=== PATIENT | male | born 1985 | race Caucasian/White ===

== ENCOUNTER → 2019-10-25 14:49 | Outpatient (CLI) | payer OTHER, SELFPAY ==
[2019-10-25 15:19] LABS: Add Manual Diff / Slide Review NO; Basophils Absolute Auto 0 /uL (0-100); Basophils Percent Auto 0.6 % (0-2); Eosinophils Absolute Auto 100 /uL (0-450); Hemoglobin 13.3 g/dL (13.5-17.5); Lymphocytes Absolute Auto 2000 /uL (1100-4500); Lymphocytes Percent Auto 25.8 % (25-40); Mean Corpuscular Volume 88.2 fL (80-100); Monocytes Absolute Auto 700 /uL (0-900); Monocytes Percent Auto 9.6 % (3-14); Neutrophils Absolute Auto 4900 /uL (1500-7000); Platelet Count 225 X10^3/uL (150-400); Red Blood Cell Count 4.42 X10^6/uL (4.5-5.9); Red Cell Distribution Width 12.3 % (11.6-14.8); White Blood Cell Count 7.8 X10^3/uL (4.5-11.0)
[2019-10-25 15:50] LABS: Alanine Aminotransferase 18 IU/L (<50); Albumin 4.5 g/dL (3.5-5.0); Albumin Globulin Ratio 1.8 (1.0-2.8); Alkaline Phosphatase 43 U/L (38-126); Aspartate Aminotransferase 21 IU/L (17-59); Bilirubin Total 0.9 mg/dL (0.2-1.3); Bilirubin Unconjugated 0.7 mg/dL (0.0-1.1); Globulin 2.5 g/dL (1.7-4.1); HEMOLYSIS < 15 (0-50)
== END ==
PROVIDERS: Referring Provider Podiatrist; Visit Provider Podiatrist
DX: B35.1 Tinea unguium (principal)
CPT/HCPCS: 36415; 80076; 85025

== ENCOUNTER 2020-06-13 18:15 | Emergency (ER) | payer OTHER, SELFPAY ==
[2020-06-13] VITALS (7 sets, daily range): BP systolic 112–134; BP diastolic 60–70; PULSE 55–70; RESP 16; TEMP 36.9; O2SAT 97–100; BMI 23.7
--- NOTE | 2020-06-13 21:29 | DI.CT.S_ITS ---
PROCEDURE: CT HEAD/BRAIN WO CON INDICATIONS: headache for 6 days TECHNIQUE: Noncontrast 4.5 mm thick angled axial sections acquired from the foramen magnum to the vertex, with coronal and sagittal reformats. For radiation dose reduction, the following was used: automated exposure control, adjustment of mA and/or kV according to patient size. COMPARISON: None. FINDINGS: Image quality: Excellent. CSF spaces: Basal cisterns are patent. No extra-axial fluid collections. Ventricles are normal in size and shape. Brain: No midline shift. No intracranial masses or hemorrhage. Guy-white matter interface is normal. There is a cavum septum pellucidum. Skull and face: Calvarium and visualized facial bones are intact, without suspicious lesions. Sinuses: The maxillary sinuses have mucosal retention cysts bilaterally. The frontal and sphenoid sinuses and ethmoid air cells are well aerated. The mastoid air cells are well aerated. IMPRESSION: 1. No acute intracranial abnormality. 2. Mucosal retention cysts in both maxillary sinuses. Dictated by: Marlon Landers M.D. on 06/13/2020 at 22:00 Approved by: Marlon Landers M.D. on 06/13/2020 at 22:03
[2020-06-13] MEDS: DEXAMETHASONE 10 MG/ML VIAL IV (21:52)
[2020-06-13] MEDS: METOCLOPRAMIDE 10 MG/2 ML INJ IV (21:52)
[2020-06-13] MEDS: SODIUM CHLORIDE 0.9% 1,000 ML 1000 ML IV (21:52)
[2020-06-13] MEDS: KETOROLAC 60 MG/2 ML VIAL 15 MG IV (21:52)
[2020-06-13 22:04] LABS: Alanine Aminotransferase 22 IU/L (<50); Albumin 4.5 g/dL (3.5-5.0); Albumin Globulin Ratio 1.9 (1.0-2.8); Alkaline Phosphatase 39 U/L (38-126); Aspartate Aminotransferase 25 IU/L (17-59); BUN Creatinine Ratio 20.2 (6-22); Bilirubin Total 0.4 mg/dL (0.2-1.3); Blood Urea Nitrogen 18 mg/dL (9-20); Calcium 9.3 mg/dL (8.4-10.2); Carbon Dioxide 29 mmol/L (22-32); Chloride 104 mmol/L (98-107); Estimated Glomerular Filt Rate > 60.0 mL/min (>60); Globulin 2.4 g/dL (1.7-4.1); Glucose 95 mg/dL (70-100); HEMOLYSIS 20 (0-50); Potassium 3.7 mmol/L (3.4-5.1); Sodium 142 mmol/L (137-145); Total Protein 6.9 g/dL (6.3-8.2)
--- NOTE | 2020-06-13 22:45 | ED.HA ---
HPI - Headache General Chief Complaint: Headache Stated Complaint: throbbing in left side of head past 6 days Time Seen by Provider: 06/13/20 21:19 Mode of arrival: Ambulatory Limitations: no limitations History of Present Illness HPI Narrative: 35-year-old gentleman with a history of chronic recurrent migraine currently on no treatment planned and taking no medications presents with 6 days of waxing and waiting headache. He does report that there are a few hours where he is headache free but the headache is more persistent and worse than it has been in the past. He describes episodes of his hands being numb significant nausea he describes it is similar to his previous migraines however most of his migraines resolved within 8 hours. He describes a bit of lightheadedness but no fevers, cough, chills, neck pain, abdominal pain and no recent trauma. Related Data Previous Rx's Medication Instructions Recorded sumatriptan succinate [Imitrex] 50 mg PO Q2-4H PRN #9 tab 06/13/20 Allergies Allergy/AdvReac Type Severity Reaction Status Date / Time No Known Drug Allergies Allergy Verified 06/13/20 18:54 Review of Systems Review of Systems Narrative: Remainder of complete review of systems is otherwise unremarkable except for that included in the HPI. Patient History Medical History Migraine Social History Smoking Status: Never smoker Smoking Status: Never smoker alcohol intake frequency: 0-2 drinks per day Substance Use Type: does not use Exam Narrative Exam Narrative: General: Healthy appearing, in mild distress. Able to give a complete and coherent history. Well-nourished well-developed HEENT: Moist mucous membranes, normal sclera with reactive pupils, Neck: No JVD, supple Respiratory: Lungs are clear to auscultation, no wheezing no rales no rhonchi. Full and symmetrical air movement Cardiac: Regular rate and rhythm no murmurs no bruits Abdomen: Soft, nontender, good bowel tones, no flank pain Skin: Warm and dry, no rashes Neurologic: Grossly neurologically intact with no obvious asymmetries or abnormalities Extremities: No trauma, well perfused Psych: Cooperative, appropriate insight and affect Initial Vital Signs Initial Vital Signs: Vital Signs Temperature 98.4 F 06/13/20 18:51 Pulse Rate 69 06/13/20 18:51 Respiratory Rate 16 06/13/20 18:51 Blood Pressure 134/66 06/13/20 18:51 Pulse Oximetry 97 06/13/20 18:51 Course Orders Ordered: ED Orders 06/13/20 21:29 CT head/brain wo con Stat 06/13/20 21:45 Comprehensive Metabolic Panel Stat Discontinued Medications Dexamethasone (Dexamethasone 10 Mg/Ml Vial) 10 mg IV NOW ONE Stop: 06/13/20 21:29 Last Admin: 06/13/20 21:52 Dose: 10 mg Documented by: PHONG Sodium Chloride (Normal Saline 0.9%) 1,000 mls @ 1,000 mls/hr IV BOLUS ONE Stop: 06/13/20 22:27 Last Infusion: 06/13/20 22:56 Dose: 0 mls/hr Documented by: Admin: 06/13/20 21:52 Dose: 1,000 mls/hr Documented by: PHONG Ketorolac Tromethamine (Ketorolac 60 Mg/2 Ml Vial) 15 mg IV NOW ONE Stop: 06/13/20 21:29 Last Admin: 06/13/20 21:52 Dose: 15 mg Documented by: PHONG Metoclopramide HCl (Metoclopramide 10 Mg/2 Ml Inj) 10 mg IV NOW ONE Stop: 06/13/20 21:29 Last Admin: 06/13/20 21:52 Dose: 10 mg Documented by: PHONG Vital Signs Vital signs: Vital Signs - 8 hr 06/13/20 20:34 06/13/20 21:00 06/13/20 21:30 Pulse Rate 58 L 59 L 70 Blood Pressure 115/62 112/61 124/68 Pulse Oximetry 100 99 99 06/13/20 21:45 06/13/20 22:00 06/13/20 22:30 Pulse Rate 66 66 55 L Blood Pressure 117/70 125/70 120/60 Pulse Oximetry 100 99 97 MDM - Headache Medical Records Attestation: I reviewed the patient's medical records. Lab Data Attestation: I reviewed the patient's lab results. Result diagrams: 06/13/20 21:45 06/13/20 21:45 Labs: Lab Results 06/13/20 Range/Units 21:45 Sodium 142 (137-145) mmol/L Potassium 3.7 (3.4-5.1) mmol/L Chloride 104 (98-107) mmol/L Carbon Dioxide 29 (22-32) mmol/L BUN 18 (9-20) mg/dL Creatinine 0.89 (0.66-1.25) mg/dL Estimated GFR > 60.0 (>60) mL/min BUN/Creatinine Ratio 20.2 (6-22) Glucose 95 (70-100) mg/dL Calcium 9.3 (8.4-10.2) mg/dL Total Bilirubin 0.4 (0.2-1.3) mg/dL AST 25 (17-59) IU/L ALT 22 (<50) IU/L Alkaline Phosphatase 39 (38-126) U/L Total Protein 6.9 (6.3-8.2) g/dL Albumin 4.5 (3.5-5.0) g/dL Globulin 2.4 (1.7-4.1) g/dL Albumin/Globulin Ratio 1.9 (1.0-2.8) Imaging Data CT scan - head: Radiologist's Impression: FINDINGS: Image quality: Excellent. CSF spaces: Basal cisterns are patent. No extra-axial fluid collections. Ventricles are normal in size and shape. Brain: No midline shift. No intracranial masses or hemorrhage. Guy-white matter interface is normal. There is a cavum septum pellucidum. Skull and face: Calvarium and visualized facial bones are intact, without suspicious lesions. Sinuses: The maxillary sinuses have mucosal retention cysts bilaterally. The frontal and sphenoid sinuses and ethmoid air cells are well aerated. The mastoid air cells are well aerated. IMPRESSION: 1. No acute intracranial abnormality. 2. Mucosal retention cysts in both maxillary sinuses. Dictated by: Marlon Landers M.D. on 06/13/2020 at 22:00 [facility] Narrative Medical decision making narrative: 35-year-old man with the 6 day history of waxing and waning migraine with aura. Ten year history of similar her migraine symptoms. He has never had additional workup for this and never had any neuro imaging. CT scan is unremarkable today labs are reassuring. He responded nicely to fluids, Toradol, Reglan. Talked about outpatient management including Imitrex. Prescription is given along with anticipated side effects of medication. If effective, recommended he follow-up with his primary care physician. He is safe for home discharge Discharge Plan Departure Patient Disposition: Home Clinical Impression: Migraine Qualifiers: Migraine type: with aura Status migrainosus presence: with status migrainosus Intractability: not intractable Qualified Code(s): G43.101 - Migraine with aura, not intractable, with status migrainosus Instructions: DI for Migraine Activity Restrictions/Additional Instructions: Thank you for coming in today With this intermittent headache that has not resolved for 6 days, I suspect it is all a single continuous migraine. Because you have never had any imaging for your head or headaches we did do a CT scan today that was reassuring. Your given a L of fluid, Toradol, metoclopramide and Decadron. The Decadron as a steroid to help prevent the headache from coming back now that is gone. In the future, using 50 mg of Imitrex, a migraine specific medication, as soon as you get the Aura may help prevent the headaches altogether. If this works, please talk to your primary care physician for a regular prescription. This prescription has been electronically sent to [facility] in [place]. If you have recurrent symptoms or other issues, please feel free to return to the emergency department Prescriptions: New sumatriptan succinate [Imitrex] 50 mg tablet 50 mg PO Q2-4H PRN (Reason: migraine headache) Qty: 9 RF: 0
== END 2020-06-13 23:08 | disposition home or self-care (01) ==
PROVIDERS: Emergency Provider Emergency Medicine
DX: G43.101 Migraine with aura, not intractable, with status migrainosus (principal)
CPT/HCPCS: 36415; 70450; 80053; 96360; 96361; 96374; 96375; 99284; J1100; J1885; J2765

== ENCOUNTER → 2020-10-29 11:32 | Outpatient (CLI) | payer OTHER, SELFPAY ==
[2020-10-29 12:03] LABS: COVID19 -Nasal RAPID Negative (Negative)
== END ==
PROVIDERS: Visit Provider Physician Assistant
DX: J02.9 Acute pharyngitis, unspecified (principal); R09.81 Nasal congestion; Z20.822 Contact with and (suspected) exposure to COVID-19
CPT/HCPCS: 87635

== ENCOUNTER → 2020-12-04 13:07 | Outpatient (CLI) | payer OTHER, SELFPAY ==
[2020-12-04 13:41] LABS: COVID19 -Nasal RAPID Negative (Negative)
== END ==
PROVIDERS: Referring Provider Nurse Practitioner Family; Visit Provider Nurse Practitioner Family
DX: Z20.822 Contact with and (suspected) exposure to COVID-19 (principal); R09.81 Nasal congestion
CPT/HCPCS: 87635

== ENCOUNTER → 2022-03-07 16:05 | Outpatient (CLI) | payer OTHER, SELFPAY ==
--- NOTE | 2022-03-07 16:06 | DI.RAD.S_ITS ---
PROCEDURE: XR TOE RT MIN 2V INDICATIONS: Toe pain TECHNIQUE: 3 views of the 2nd toe(s) acquired. COMPARISON: None. FINDINGS: Bones: No fractures or dislocations. No suspicious bony lesions. Soft tissues: No suspicious soft tissue densities. IMPRESSION: Unremarkable 2nd toe radiographs Approved by: Edwardo Lind M.D. on 03/07/2022 at 16:34
== END ==
PROVIDERS: Referring Provider Nurse Practitioner Family; Visit Provider Nurse Practitioner Family
DX: S99.921A Unspecified injury of right foot, initial encounter (principal); X58.XXXA Exposure to other specified factors, initial encounter
CPT/HCPCS: 73660

== ENCOUNTER 2022-10-13 21:47 | Emergency (ER) | payer OTHER, SELFPAY ==
[2022-10-13 21:58] VITALS: BP 123/65; PULSE 68; RESP 16; TEMP 36.7; O2SAT 100; BMI 23.1
--- NOTE | 2022-10-13 22:27 | DI.RAD.S_ITS ---
PROCEDURE: XR CHEST 1V INDICATIONS: chest pain TECHNIQUE: One view of the chest was acquired. COMPARISON: None. FINDINGS: Surgical changes and devices: None. Lungs and pleura: Lungs are clear. No pleural effusions or pneumothorax. Mediastinum: Mediastinal contours appear normal. Heart size is normal. Bones and chest wall: No suspicious bony lesions. Overlying soft tissues appear unremarkable. IMPRESSION: 1. No acute cardiopulmonary disease. Dictated by: Julio Marsh M.D. on 10/13/2022 at 23:22 Approved by: Julio Marsh M.D. on 10/13/2022 at 23:22
[2022-10-13 22:30] VITALS: PULSE 57; RESP 16; O2SAT 98
[2022-10-13 22:30] LABS: Add Manual Diff / Slide Review NO; Basophils Absolute Auto 100 /uL (0-100); Eosinophils Absolute Auto 200 /uL (0-450); Eosinophils Percent Auto 2.1 % (2-4); Hemoglobin 13.1 g/dL (13.5-17.5); Lymphocytes Absolute Auto 2900 /uL (1100-4500); Lymphocytes Percent Auto 38.5 % (25-40); Mean Corpuscular HGB Conc 33.7 % (30-36); Mean Corpuscular Hemoglobin 29.6 PG (26-34); Mean Corpuscular Volume 87.8 fL (80-100); Monocytes Absolute Auto 900 /uL (0-900); Monocytes Percent Auto 12.1 % (3-14); Neutrophils Absolute Auto 3400 /uL (1500-7000); Neutrophils Percent Auto 46.3 % (50-75); Platelet Count 217 X10^3/uL (150-400); Red Blood Cell Count 4.44 X10^6/uL (4.5-5.9); Red Cell Distribution Width 12.7 % (11.6-14.8); White Blood Cell Count 7.4 X10^3/uL (4.5-11.0)
[2022-10-13 22:46] LABS: BUN Creatinine Ratio 20.6 (6-22); Blood Urea Nitrogen 20 mg/dL (9-20); Calcium 9.4 mg/dL (8.4-10.2); Carbon Dioxide 29 mmol/L (22-32); Chloride 103 mmol/L (98-107); Estimated Glomerular Filt Rate > 60 mL/min (>60); Glucose 95 mg/dL (70-100); HEMOLYSIS < 15 (0-50); Sodium 138 mmol/L (137-145)
[2022-10-13 22:58] LABS: Troponin I < 0.012 ng/mL (0.01-0.034)
[2022-10-13 23:00] VITALS: BP 116/69; PULSE 57; RESP 17; O2SAT 97
--- NOTE | 2022-10-13 23:20 | ED.GENADULT ---
HPI - General Adult General Chief complaint: Dizziness Stated complaint: dizziness, lt arm pain and tingling Time Seen by Provider: 10/13/22 22:26 Source: patient Mode of arrival: Ambulatory History of Present Illness HPI narrative: Patient is a 37-year-old male. Has a history of migraines. States he is had 4-5 days of dizziness. He was seen at urgent care yesterday and was told that if his symptoms worsening needed to come to the emergency department. Earlier this afternoon he started to have some left arm tingling. Denies headaches. No shortness of breath. If fevers. Related Data Previous Rx's Medication Instructions Recorded sumatriptan succinate 50 mg tablet 50 mg PO Q2-4H PRN migraine 06/13/20 (Imitrex) headache #9 tabs Allergies Allergy/AdvReac Type Severity Reaction Status Date / Time No Known Drug Allergies Allergy Verified 10/12/22 17:26 Review of Systems Constitutional Constitutional: Reports system reviewed and no additional complaints, except as documented Cardiovascular Cardiovascular: Reports system reviewed and no additional complaints, except as documented Respiratory Respiratory: Reports system reviewed and no additional complaints, except as documented Gastrointestinal Gastrointestinal: Reports system reviewed and no additional complaints, except as documented Integumentary/Breasts Skin/Breast: Reports system reviewed and no additional complaints, except as documented Neurologic Neurologic: Reports system reviewed and no additional complaints, except as documented Patient History Medical History Migraine Social History Smoking Status: Never smoker Smoking Status: Never smoker alcohol intake frequency: 0-2 drinks per day Substance Use Type: does not use Exam Initial Vital Signs Initial Vital Signs: Vital Signs Temperature 98.1 F 10/13/22 21:58 Pulse Rate 68 10/13/22 21:58 Respiratory Rate 16 10/13/22 21:58 Blood Pressure 123/65 10/13/22 21:58 Pulse Oximetry 100 10/13/22 21:58 Oxygen Delivery Method Room Air 10/13/22 21:58 Const General: cooperative, comfortable and No ill appearing HENMT Head: normal to inspection and normocephalic Resp Effort & Inspection: normal respiratory effort Auscultation: clear to auscultation bilaterally Cardio Rate: regular rate Rhythm: regular rhythm GI Inspection: normal to inspection Skin General: no rashes or lesions noted Neuro General: patient alert, patient awake and moves all extremities Scores HEART Score Heart Score history: Slightly Suspicious Heart Score EKG: Normal Heart Score Age: < 45 years old Heart Score risk factors: No known risk factors Heart Score troponin: < or = to normal limit Heart Score Total: 0 Course Orders Ordered: ED Orders 10/13/22 22:06 EKG-12 Lead Stat 10/13/22 22:15 Basic Metabolic Panel Stat Complete Blood Count AUTO DIFF Stat Troponin I Stat 10/13/22 22:27 XR chest 1V Stat Vital Signs Vital signs: Vital Signs - 8 hr 10/13/22 21:58 10/13/22 22:30 10/13/22 23:00 Temperature 98.1 F Pulse Rate 68 57 L Respiratory Rate 16 16 Blood Pressure 123/65 116/69 Pulse Oximetry 100 98 Oxygen Delivery Method Room Air 10/13/22 23:00 Temperature Pulse Rate 57 L Respiratory Rate 17 Blood Pressure Pulse Oximetry 97 Oxygen Delivery Method Medical Decision Making Lab Data Lab results reviewed: Yes I reviewed the patient's lab results. 10/13/22 22:15 10/13/22 22:15 Labs: Lab Results 10/13/22 10/13/22 Range/Units 22:15 22:15 WBC 7.4 (4.5-11.0) X10^3/uL RBC 4.44 L (4.5-5.9) X10^6/uL Hgb 13.1 L (13.5-17.5) g/dL Hct 39.0 L (41-53) % MCV 87.8 (80-100) fL MCH 29.6 (26-34) PG MCHC 33.7 (30-36) % RDW 12.7 (11.6-14.8) % Plt Count 217 (150-400) X10^3/uL Neut % (Auto) 46.3 L (50-75) % Lymph % (Auto) 38.5 (25-40) % [place] % (Auto) 12.1 (3-14) % Eos % (Auto) 2.1 (2-4) % Baso % (Auto) 1.0 (0-2) % Neut # (Auto) 3400 (6840-0648) /uL Lymph # (Auto) 2900 (5979-6392) /uL [place] # (Auto) 900 (0-900) /uL Eos # (Auto) 200 (0-450) /uL Baso # (Auto) 100 (0-100) /uL Sodium 138 (137-145) mmol/L Potassium 4.0 (3.4-5.1) mmol/L Chloride 103 (98-107) mmol/L Carbon Dioxide 29 (22-32) mmol/L BUN 20 (9-20) mg/dL Creatinine 0.97 (0.66-1.25) mg/dL Estimated GFR > 60 (>60) mL/min BUN/Creatinine Ratio 20.6 (6-22) Glucose 95 (70-100) mg/dL Calcium 9.4 (8.4-10.2) mg/dL Troponin I < 0.012 (0.01-0.034) ng/mL Imaging Data Chest x-ray: Radiologist's Impression: PROCEDURE:? XR CHEST 1V ? INDICATIONS:? chest pain ? TECHNIQUE:? One view of the chest was acquired.? ? COMPARISON:? None. ? FINDINGS:? ? Surgical changes and devices:? None.? ? Lungs and pleura:? Lungs are clear.? No pleural effusions or pneumothorax.? ? Mediastinum:? Mediastinal contours appear normal.? Heart size is normal.? ? Bones and chest wall:? No suspicious bony lesions.? Overlying soft tissues appear unremarkable.? ? IMPRESSION:? ? 1.? No acute cardiopulmonary disease. ECG Data Attestation: I personally reviewed and interpreted this ECG as follows: Interpretation: Sinus bradycardia Ventricular rate of 58 Normal QRS Normal QTC No ST T wave changes MDM Narrative Medical decision making narrative: Low risk heart score. Labs unremarkable. EKG is unremarkable. Chest x-ray is unremarkable. Low suspicion for ACS, TIA/CVA. Unsure the exact etiology however patient is safe for discharge home and follow-up with primary provider. He was given return precautions. He expressed understanding and agreement. Discharge Plan Departure Patient Disposition: Home Clinical Impression: Atypical chest pain Instructions: DI for Atypical Chest Pain Activity Restrictions/Additional Instructions: Recommend that you continue to take all of your medications as directed and keep your scheduled appointment with your new primary doctor. Return to the emergency department for new or worsening symptoms. Prescriptions: No Action sumatriptan succinate [Imitrex] 50 mg tablet 50 mg PO Q2-4H PRN (Reason: migraine headache) Qty: 9 0RF Rx Instructions: do not exceed 4 doses per 24 hrs Referrals: Leno Schwab DO [Primary Care Provider] - Stand Alone Forms: Patient Portal/API
== END 2022-10-13 23:37 | disposition home or self-care (01) ==
PROVIDERS: Emergency Provider Emergency Medicine; PCP Family Medicine
DX: R07.89 Other chest pain (principal)
CPT/HCPCS: 36415; 71045; 80048; 84484; 85025; 93005; 99283; 99284

== ENCOUNTER 2022-10-15 17:50 | Emergency (ER) | payer OTHER, SELFPAY ==
[2022-10-15 17:59] VITALS: BP 130/70; PULSE 58; RESP 14; TEMP 37; O2SAT 98; BMI 23.1
--- NOTE | 2022-10-15 19:56 | DI.CT.S_ITS ---
PROCEDURE: CT HEAD/BRAIN WO CON INDICATIONS: R sided facial tingling TECHNIQUE: Noncontrast 4.5 mm thick angled axial sections acquired from the foramen magnum to the vertex, with coronal and sagittal reformats. For radiation dose reduction, the following was used: automated exposure control, adjustment of mA and/or kV according to patient size. COMPARISON: [facility], CT, CT HEAD/BRAIN WO CON, 06/13/2020, 21:32. FINDINGS: Image quality: Excellent. CSF spaces: Basal cisterns are patent. No extra-axial fluid collections. Ventricles are normal in size and shape. The is a cavum septum pellucidum. Brain: No intracranial hemorrhage, mass, or mass effect. Guy-white matter interface appears preserved. Skull and face: Calvarium and visualized facial bones demonstrate no acute fractures. There is mild left nasal bone irregularity which appears unchanged. Sinuses: Visualized sinuses demonstrate partial opacification of the right maxillary sinus with an air-fluid level. Mastoid air cells are clear. IMPRESSION: 1. No acute intracranial abnormality. 2. Right maxillary sinus opacification with an air-fluid level suggestive of acute sinusitis. Dictated by: Julio Marsh M.D. on 10/15/2022 at 20:41 Approved by: Julio Marsh M.D. on 10/15/2022 at 20:44
--- NOTE | 2022-10-15 19:56 | ED.HA ---
HPI - Headache General Chief Complaint: Headache Stated Complaint: numbness rt side of face, lightheaded Time Seen by Provider: 10/15/22 19:19 Source: patient Mode of arrival: Ambulatory Limitations: no limitations History of Present Illness HPI Narrative: Patient is a 37-year-old male. He does have a history of migraine headaches. Does have a prescription for Imitrex. He is not taken this medication. He was seen here in the emergency department a couple days ago. He was seen by myself. At that time he was seen for evaluation of lightheadedness and left arm symptoms. He would a negative workup. Discharged home. Since that time he states that the issues that he was having in his left arm is since resolved although he is still having slight headache and lightheadedness. This is not a vertigo sensation. He also states he is fullness in his right ear. Also has discomfort to the right side of his face and tingling to the right side of his face. No sore throat. No fevers. Skin rashes. No chest pain. No shortness of breath. Related Data Previous Rx's Medication Instructions Recorded sumatriptan succinate 50 mg tablet 50 mg PO Q2-4H PRN migraine 06/13/20 (Imitrex) headache #9 tabs amoxicillin 875 mg-potassium 1 tab PO BID 7 days #14 tabs 10/15/22 clavulanate 125 mg tablet Allergies Allergy/AdvReac Type Severity Reaction Status Date / Time bee venom protein (honey bee) Allergy Unknown Verified 10/15/22 18:03 Review of Systems Review of Systems ROS Unobtainable: All systems reviewed & are unremarkable except as noted in HPI and below Patient History Medical History Migraine Social History Smoking Status: Never smoker Smoking Status: Never smoker alcohol intake frequency: 0-2 drinks per day Substance Use Type: does not use Exam Initial Vital Signs Initial Vital Signs: Vital Signs Temperature 98.6 F 10/15/22 17:59 Pulse Rate 58 L 10/15/22 17:59 Respiratory Rate 14 10/15/22 17:59 Blood Pressure 130/70 10/15/22 17:59 Pulse Oximetry 98 10/15/22 17:59 Oxygen Delivery Method Room Air 10/15/22 17:59 Const General: cooperative, comfortable and No ill appearing [facility] Head: normal to inspection and normocephalic Ears: hearing grossly normal bilaterally and other (Right ear TM bulging over no erythema, cerumen obscuring L tm) Face and sinus: normal facial exam Mouth: oral mucosae normal Resp Effort & Inspection: normal respiratory effort Auscultation: clear to auscultation bilaterally Cardio Rate: regular rate Rhythm: regular rhythm Skin General: no rashes or lesions noted Neuro General: patient alert, patient awake, patient oriented x3 and moves all extremities Cranial Nerves: CN's II-XI intact bilaterally Cognition: normal cognition Speech: speech normal Sensory Exam: no sensory deficits noted Extrem General: normal to inspection and capillary refill normal Course Orders Ordered: ED Orders 10/15/22 19:56 CT head/brain wo con Stat Discontinued Medications Amoxicillin/Clavulanate Potassium (Amoxicillin/Clav 875/125 Mg) 1 tab PO NOW ONE Stop: 10/15/22 21:47 Last Admin: 10/15/22 22:10 Dose: 1 tab Documented By: ROBERT Sumatriptan Succinate (Sumatriptan 25 Mg Tablet) 50 mg PO NOW ONE Stop: 10/15/22 19:57 Last Admin: 10/15/22 20:15 Dose: 50 mg Documented By: JOYCE Vital Signs Vital signs: Vital Signs - 8 hr 10/15/22 22:11 10/15/22 22:12 10/15/22 22:12 Pulse Rate 64 60 Blood Pressure 115/63 Pulse Oximetry 97 97 MDM - Headache Imaging Data CT scan - head: Radiologist's Impression: PROCEDURE:? CT HEAD/BRAIN WO CON ? INDICATIONS:? R sided facial tingling ? TECHNIQUE:? Noncontrast 4.5 mm thick angled axial sections acquired from the foramen magnum to the vertex, with coronal and sagittal reformats.? For radiation dose reduction, the following was used:? automated exposure control, adjustment of mA and/or kV according to patient size.? ? COMPARISON:? [facility], CT, CT HEAD/BRAIN WO CON, 06/13/2020, 21:32. ? FINDINGS:? Image quality:? Excellent.? ? CSF spaces:? Basal cisterns are patent.? No extra-axial fluid collections.? Ventricles are normal in size and shape.? The is a cavum septum pellucidum. ? Brain:? No intracranial hemorrhage, mass, or mass effect.? Guy-white matter interface appears preserved.? ? Skull and face:? Calvarium and visualized facial bones demonstrate no acute fractures.? There is mild left nasal bone irregularity which appears unchanged. ? Sinuses:? Visualized sinuses demonstrate partial opacification of the right maxillary sinus with an air-fluid level.? Mastoid air cells are clear. ? IMPRESSION:? ? 1. No acute intracranial abnormality. ? 2. Right maxillary sinus opacification with an air-fluid level suggestive of acute sinusitis.? MDM Narrative Medical decision making narrative: Patient has a nonfocal neurologic exam. Head CT is consistent with an acute sinusitis and that does fit his presentation today. He does have a bulging right tympanic membrane. I have low suspicion for CVA/TIA. Will treat like sinusitis. He was given return precautions and follow-up instructions. He expressed understanding and agreement. Discharge Plan Departure Patient Disposition: Home Clinical Impression: Sinusitis Instructions: DI for Sinusitis Activity Restrictions/Additional Instructions: I do recommend that you start taking the antibiotics as directed. I also recommend that you start taking an antihistamine such as Claritin/Giselle/Zyrtec or the generic version these medication on a daily basis. Contact your primary provider for follow-up. Return to the emergency department for new symptoms. Prescriptions: New amoxicillin-pot clavulanate 875-125 mg tablet 1 tab PO BID 7 Days Qty: 14 0RF No Action sumatriptan succinate [Imitrex] 50 mg tablet 50 mg PO Q2-4H PRN (Reason: migraine headache) Qty: 9 0RF Rx Instructions: do not exceed 4 doses per 24 hrs Referrals: Leno Schwab DO [Primary Care Provider] - Stand Alone Forms: Patient Portal/API
[2022-10-15] MEDS: SUMAtriptan 25 MG TABLET 50 MG PO (20:15)
[2022-10-15] MEDS: AMOXICILLIN/CLAV 875/125 MG 1 TAB PO (22:10)
[2022-10-15 22:11] VITALS: PULSE 64; O2SAT 97
[2022-10-15 22:12] VITALS: BP 115/63; PULSE 60; O2SAT 97
== END 2022-10-15 22:19 | disposition home or self-care (01) ==
PROVIDERS: Emergency Provider Emergency Medicine; PCP Family Medicine
DX: J32.9 Chronic sinusitis, unspecified (principal); R51.9 Headache, unspecified; R20.2 Paresthesia of skin
CPT/HCPCS: 70450; 99283; 99284

== ENCOUNTER 2022-10-19 09:48 | Emergency (ER) | payer OTHER, SELFPAY ==
[2022-10-19 10:07] VITALS: BP 137/74; PULSE 66; RESP 16; TEMP 36.8; O2SAT 100; BMI 23.1
[2022-10-19 10:15] VITALS: PULSE 60; RESP 23; O2SAT 99
[2022-10-19 10:16] VITALS: BP 136/74; PULSE 58; RESP 20; O2SAT 100
[2022-10-19 10:30] VITALS: BP 126/64; PULSE 60; RESP 17; O2SAT 100
[2022-10-19 10:35] LABS: Add Manual Diff / Slide Review NO; Basophils Absolute Auto 0 /uL (0-100); Basophils Percent Auto 0.6 % (0-2); Eosinophils Absolute Auto 100 /uL (0-450); Eosinophils Percent Auto 0.9 % (2-4); Hemoglobin 13.8 g/dL (13.5-17.5); Lymphocytes Absolute Auto 1800 /uL (1100-4500); Lymphocytes Percent Auto 26.7 % (25-40); Mean Corpuscular HGB Conc 33.7 % (30-36); Mean Corpuscular Hemoglobin 29.6 PG (26-34); Mean Corpuscular Volume 87.8 fL (80-100); Monocytes Absolute Auto 700 /uL (0-900); Monocytes Percent Auto 9.8 % (3-14); Neutrophils Absolute Auto 4300 /uL (1500-7000); Platelet Count 214 X10^3/uL (150-400); Red Blood Cell Count 4.67 X10^6/uL (4.5-5.9); Red Cell Distribution Width 12.3 % (11.6-14.8); White Blood Cell Count 6.9 X10^3/uL (4.5-11.0)
[2022-10-19 10:56] LABS: Alanine Aminotransferase 25 IU/L (<50); Albumin 4.7 g/dL (3.5-5.0); Albumin Globulin Ratio 1.6 (1.0-2.8); Alkaline Phosphatase 48 U/L (38-126); Aspartate Aminotransferase 24 IU/L (17-59); BUN Creatinine Ratio 14.8 (6-22); Bilirubin Total 0.7 mg/dL (0.2-1.3); Blood Urea Nitrogen 13 mg/dL (9-20); Calcium 9.3 mg/dL (8.4-10.2); Carbon Dioxide 28 mmol/L (22-32); Chloride 102 mmol/L (98-107); Estimated Glomerular Filt Rate > 60 mL/min (>60); Globulin 2.9 g/dL (1.7-4.1); Glucose 102 mg/dL (70-100); HEMOLYSIS < 15 (0-50); Lipase 54 U/L (23-300); Potassium 3.8 mmol/L (3.4-5.1); Sodium 139 mmol/L (137-145); Total Protein 7.6 g/dL (6.3-8.2)
[2022-10-19 11:00] VITALS: BP 115/65; PULSE 59; RESP 15; O2SAT 100
[2022-10-19 11:30] VITALS: BP 124/71; PULSE 67; RESP 14; O2SAT 100
--- NOTE | 2022-10-19 11:37 | ED.ABDPAIN ---
HPI - Abdominal Pain <Gallo Blankenship PA-C - Last Filed: 10/19/22 11:44> General Chief Complaint: Abdominal Pain Stated Complaint: Stomach pain/ on anitbiotics T-4 Time Seen by Provider: 10/19/22 11:07 Source: patient Mode of arrival: Ambulatory History of Present Illness HPI narrative: 37-year-old male with past medical history migraine presents to the ED with 1 day of epigastric pain. Patient states that he was seen in the ED for sinusitis, has been on Augmentin for the last 3 days. Patient states that he took his dose of Augmentin this morning, and later ate some cereal, following which he had intense epigastric pain which he describes as resembling hunger pains. Patient states that when he came into the ED, he noticed some gurgling noises from his stomach, following which his abdominal pain completely resolved. Patient had a bowel movement this morning which he describes as normal, denies hematochezia or melena. Patient denies fever, chills, nausea, vomiting, chest pain, shortness of breath. No history of nephrolithiasis. Related Data Previous Rx's Medication Instructions Recorded sumatriptan succinate 50 mg tablet 50 mg PO Q2-4H PRN migraine 06/13/20 (Imitrex) headache #9 tabs amoxicillin 875 mg-potassium 1 tab PO BID 7 days #14 tabs 10/15/22 clavulanate 125 mg tablet Allergies Allergy/AdvReac Type Severity Reaction Status Date / Time bee venom protein (honey bee) Allergy Unknown Verified 10/15/22 18:03 Review of Systems <Gallo Blankenship PA-C - Last Filed: 10/19/22 11:44> Review of Systems ROS Unobtainable: All systems reviewed & are unremarkable except as noted in HPI and below Constitutional Constitutional: Denies chills, Denies fatigue, Denies fever(s), Denies frequent falls, Denies lethargy and Denies weakness Eyes Eyes: Denies change in vision, Denies eye discharge, Denies irritation and Denies loss of vision ENT Ears, Nose, Mouth, and Throat: Denies change in voice, Denies dizziness, Denies neck pain, Denies sore throat and Denies throat swelling Cardiovascular Cardiovascular: Denies chest pain, Denies irregular heart rhythm, Denies lightheadedness, Denies palpitations, Denies dyspnea, Denies dyspnea on exertion and Denies orthopnea Respiratory Respiratory: Denies cough, Denies dyspnea, Denies dyspnea on exertion and Denies wheezing Gastrointestinal Gastrointestinal: Reports abdominal pain, Denies change in bowel habits, Denies diarrhea, Denies nausea and Denies vomiting Genitourinary Genitourinary: Denies hematuria, Denies flank pain, Denies urinary incontinence and Denies urinary urgency Musculoskeletal Musculoskeletal: Denies back pain, Denies muscle weakness, Denies neck pain, Denies numbness and Denies tingling Integumentary/Breasts Skin/Breast: Denies pruritus, Denies erythema, Denies rash and Denies wounds Neurologic Neurologic: Denies behavioral changes, Denies confusion, Denies dizziness, Denies frequent falls, Denies loss of vision, Denies numbness, Denies tingling and Denies weakness Psychiatric Psychiatric: Denies anxiety, Denies behavioral changes, Denies confusion, Denies depression, Denies homicidal ideation and Denies suicidal ideation Endocrine Endocrine: Denies fatigue, Denies flushing and Denies palpitations Hematologic/Lymphatic Hematologic/Lymphatic: Denies easy bruising Allergic/Immunologic Allergic/Immunologic: Denies urticaria, Denies throat swelling and Denies wheezing Patient History <Gallo Blankenship PA-C - Last Filed: 10/19/22 11:44> Medical History Migraine Social History Smoking Status: Never smoker Smoking Status: Never smoker alcohol intake frequency: 0-2 drinks per day Substance Use Type: does not use Exam <Gallo Blankenship PA-C - Last Filed: 10/19/22 11:44> Narrative Exam Narrative: Const General:?cooperative, healthy appearing and comfortable [facility] Head:?normal to inspection Ears:?hearing grossly normal bilaterally Nose:?external nose normal Face and sinus:?normal facial exam and sinuses nontender Mouth:?oral mucosae normal Throat:?posterior oropharynx normal Eyes General:?appearance normal, both eyes and all related structures Neck Neck:?normal visual inspection and no lymphadenopathy noted Resp Effort & Inspection:?normal respiratory effort Auscultation:?clear to auscultation bilaterally Cardio Rate:?regular rate Rhythm:?regular rhythm GI Abdomen is soft, nondistended, nontender to palpation. There is no CVA tenderness. Neuro General:?patient alert, patient awake and patient oriented x3 Initial Vital Signs Initial Vital Signs: Vital Signs Temperature 98.2 F 10/19/22 10:07 Pulse Rate 66 10/19/22 10:07 Respiratory Rate 16 10/19/22 10:07 Blood Pressure 137/74 10/19/22 10:07 Pulse Oximetry 100 10/19/22 10:07 Oxygen Delivery Method Room Air 10/19/22 10:07 <Sharyn Richardson DO - Last Filed: 10/20/22 08:14> Initial Vital Signs Initial Vital Signs: Vital Signs Temperature 98.2 F 10/19/22 10:07 Pulse Rate 66 10/19/22 10:07 Respiratory Rate 16 10/19/22 10:07 Blood Pressure 137/74 10/19/22 10:07 Pulse Oximetry 100 10/19/22 10:07 Oxygen Delivery Method Room Air 10/19/22 10:07 Course <Gallo Blankenship PA-C - Last Filed: 10/19/22 11:44> Orders Ordered: Discontinued Medications Ondansetron HCl (Ondansetron 4 Mg Odt) 4 mg PO NOW PRN PRN Reason: Nausea And Vomiting Ondansetron HCl (Ondansetron 4 Mg/2 Ml Inj) 4 mg IV NOW PRN PRN Reason: Nausea And Vomiting Vital Signs Vital signs: Vital Signs - 8 hr 10/19/22 10:07 10/19/22 10:15 10/19/22 10:16 Temperature 98.2 F Pulse Rate 66 60 58 L Respiratory Rate 16 23 20 Blood Pressure 137/74 Pulse Oximetry 100 99 100 Oxygen Delivery Method Room Air 10/19/22 10:16 10/19/22 10:30 10/19/22 10:30 Temperature Pulse Rate 60 Respiratory Rate 17 Blood Pressure 136/74 126/64 Pulse Oximetry 100 Oxygen Delivery Method <DO Usha Maria Last Filed: 10/20/22 08:14> Orders Ordered: Discontinued Medications Ondansetron HCl (Ondansetron 4 Mg Odt) 4 mg PO NOW PRN PRN Reason: Nausea And Vomiting Ondansetron HCl (Ondansetron 4 Mg/2 Ml Inj) 4 mg IV NOW PRN PRN Reason: Nausea And Vomiting Vital Signs Vital signs: Vital Signs - 8 hr 10/19/22 10:07 10/19/22 10:15 10/19/22 10:16 Temperature 98.2 F Pulse Rate 66 60 58 L Respiratory Rate 16 23 20 Blood Pressure 137/74 Pulse Oximetry 100 99 100 Oxygen Delivery Method Room Air 10/19/22 10:16 10/19/22 10:30 10/19/22 10:30 Temperature Pulse Rate 60 Respiratory Rate 17 Blood Pressure 136/74 126/64 Pulse Oximetry 100 Oxygen Delivery Method MDM - Abdominal Pain <Gallo Blankenship PA-C - Last Filed: 10/19/22 11:44> Lab Data 10/19/22 10:25 10/19/22 10:25 Labs: Lab Results 10/19/22 10/19/22 Range/Units 10:25 10:25 WBC 6.9 (4.5-11.0) X10^3/uL RBC 4.67 (4.5-5.9) X10^6/uL Hgb 13.8 (13.5-17.5) g/dL Hct 41.0 (41-53) % MCV 87.8 (80-100) fL MCH 29.6 (26-34) PG MCHC 33.7 (30-36) % RDW 12.3 (11.6-14.8) % Plt Count 214 (150-400) X10^3/uL Neut % (Auto) 62.0 (50-75) % Lymph % (Auto) 26.7 (25-40) % Harris % (Auto) 9.8 (3-14) % Eos % (Auto) 0.9 L (2-4) % Baso % (Auto) 0.6 (0-2) % Neut # (Auto) 4300 (8340-9275) /uL Lymph # (Auto) 1800 (2050-1573) /uL Harris # (Auto) 700 (0-900) /uL Eos # (Auto) 100 (0-450) /uL Baso # (Auto) 0 (0-100) /uL Sodium 139 (137-145) mmol/L Potassium 3.8 (3.4-5.1) mmol/L Chloride 102 (98-107) mmol/L Carbon Dioxide 28 (22-32) mmol/L BUN 13 (9-20) mg/dL Creatinine 0.88 (0.66-1.25) mg/dL Estimated GFR > 60 (>60) mL/min BUN/Creatinine Ratio 14.8 (6-22) Glucose 102 H (70-100) mg/dL Calcium 9.3 (8.4-10.2) mg/dL Total Bilirubin 0.7 (0.2-1.3) mg/dL AST 24 (17-59) IU/L ALT 25 (<50) IU/L Alkaline Phosphatase 48 (38-126) U/L Total Protein 7.6 (6.3-8.2) g/dL Albumin 4.7 (3.5-5.0) g/dL Globulin 2.9 (1.7-4.1) g/dL Albumin/Globulin Ratio 1.6 (1.0-2.8) Lipase 54 (23-300) U/L MDM Narrative Medical decision making narrative: 37-year-old male with past medical history migraine presents to the ED with 1 day of epigastric pain. Concern for dyspepsia versus other intra-abdominal pathology versus other. Physical exam is reassuring for a benign abdomen, and patient is currently asymptomatic in the ED. Labs are within normal limits. No indication for further imaging. Patient agrees to monitor his symptoms and return to the ED if symptoms return. Recommend follow-up with PCP as soon as possible. Recommend taking the antibiotic with food. ED return precautions discussed with patient. Patient verbalized understanding. Medical records reviewed: Yes <Sharyn Richardson DO - Last Filed: 10/20/22 08:14> Lab Data Labs: Lab Results 10/19/22 10/19/22 Range/Units 10:25 10:25 WBC 6.9 (4.5-11.0) X10^3/uL RBC 4.67 (4.5-5.9) X10^6/uL Hgb 13.8 (13.5-17.5) g/dL Hct 41.0 (41-53) % MCV 87.8 (80-100) fL MCH 29.6 (26-34) PG MCHC 33.7 (30-36) % RDW 12.3 (11.6-14.8) % Plt Count 214 (150-400) X10^3/uL Neut % (Auto) 62.0 (50-75) % Lymph % (Auto) 26.7 (25-40) % Harris % (Auto) 9.8 (3-14) % Eos % (Auto) 0.9 L (2-4) % Baso % (Auto) 0.6 (0-2) % Neut # (Auto) 4300 (7010-3885) /uL Lymph # (Auto) 1800 (4333-6313) /uL Harris # (Auto) 700 (0-900) /uL Eos # (Auto) 100 (0-450) /uL Baso # (Auto) 0 (0-100) /uL Sodium 139 (137-145) mmol/L Potassium 3.8 (3.4-5.1) mmol/L Chloride 102 (98-107) mmol/L Carbon Dioxide 28 (22-32) mmol/L BUN 13 (9-20) mg/dL Creatinine 0.88 (0.66-1.25) mg/dL Estimated GFR > 60 (>60) mL/min BUN/Creatinine Ratio 14.8 (6-22) Glucose 102 H (70-100) mg/dL Calcium 9.3 (8.4-10.2) mg/dL Total Bilirubin 0.7 (0.2-1.3) mg/dL AST 24 (17-59) IU/L ALT 25 (<50) IU/L Alkaline Phosphatase 48 (38-126) U/L Total Protein 7.6 (6.3-8.2) g/dL Albumin 4.7 (3.5-5.0) g/dL Globulin 2.9 (1.7-4.1) g/dL Albumin/Globulin Ratio 1.6 (1.0-2.8) Lipase 54 (23-300) U/L ECG Data Interpretation: Dylan-sinus rhythm rate 69 CT interval 142 QRS [address] changes similar to previous EKGs Discharge Plan Departure Patient Disposition: Home Clinical Impression: Abdominal pain Instructions: DI for Abdominal Pain-Adult Activity Restrictions/Additional Instructions: You were evaluated in the ED today for abdominal pain. It is reassuring that your physical exam was normal, your labs are normal and your symptoms have resolved spontaneously. It is possible that taking the antibiotics on an empty stomach caused some discomfort. Please take your antibiotics with food. Please follow-up with your PCP as soon as possible. Please monitor your symptoms and return to the ED if you have worsening symptoms. Prescriptions: No Action sumatriptan succinate [Imitrex] 50 mg tablet 50 mg PO Q2-4H PRN (Reason: migraine headache) Qty: 9 0RF Rx Instructions: do not exceed 4 doses per 24 hrs amoxicillin-pot clavulanate 875-125 mg tablet 1 tab PO BID 7 Days Qty: 14 0RF Referrals: Leno Schwab DO [Primary Care Provider] - Stand Alone Forms: Patient Portal/API <Sharyn Richardson DO - Last Filed: 10/20/22 08:14> Cosign ED Attending Deweyature Attestation: I was immediately available in the department for consultation. Documentation has been reviewed.
[2022-10-22 08:47] LABS: Cholesterol 161 mg/dL (140-199); HDL Cholesterol 65 mg/dL (40-60); LDL Cholesterol Calculated 83 mg/dL (<100); Triglycerides 63 mg/dL (35-150)
[2022-10-22 16:39] LABS: HIV 1 & 2 Ab/Ag 4th Gen Combo NEGATIVE (NEGATIVE); Hep C Virus Ab w/Reflex Quant NEGATIVE s/c (NEGATIVE)
== END 2022-10-19 11:44 | disposition home or self-care (01) ==
PROVIDERS: Emergency Medicine; Emergency Provider Student in an Organized Health Care Education/Training Program; PCP Family Medicine
DX: R10.13 Epigastric pain (principal)
CPT/HCPCS: 36415; 80053; 80061; 83690; 85025; 86803; 87389; 93005; 99283; 99284

== ENCOUNTER 2022-11-09 21:35 | Emergency (ER) | payer OTHER, SELFPAY ==
[2022-11-09 21:53] VITALS: BP 119/69; PULSE 69; RESP 16; TEMP 36.7; O2SAT 100; BMI 23.1
--- NOTE | 2022-11-09 22:04 | ED.NECK ---
HPI - Neck Pain/Injury General Chief Complaint: Neck Pain/Injury Stated Complaint: Neck/facial pain, Dizzy Time Seen by Provider: 11/09/22 21:38 Mode of arrival: Ambulatory Related Data Previous Rx's Medication Instructions Recorded sumatriptan succinate 50 mg tablet 50 mg PO Q2-4H PRN migraine 10/22/22 (Imitrex) headache #9 tabs Allergies Allergy/AdvReac Type Severity Reaction Status Date / Time bee venom protein (honey bee) Allergy Unknown Verified 11/09/22 21:53 Patient History Medical History (Updated 11/03/22 @ 00:05 by ) Migraine Migraine with aura, intractable, without status migrainosus Social History Smoking Status: Never smoker Smoking Status: Never smoker alcohol intake frequency: 0-2 drinks per day Substance Use Type: does not use Exam Initial Vital Signs Initial Vital Signs: Vital Signs Temperature 98.1 F 11/09/22 21:53 Pulse Rate 69 11/09/22 21:53 Respiratory Rate 16 11/09/22 21:53 Blood Pressure 119/69 11/09/22 21:53 Pulse Oximetry 100 11/09/22 21:53 Oxygen Delivery Method Room Air 11/09/22 21:53 Course Vital Signs Vital signs: Vital Signs - 8 hr 11/09/22 21:53 Temperature 98.1 F Pulse Rate 69 Respiratory Rate 16 Blood Pressure 119/69 Pulse Oximetry 100 Oxygen Delivery Method Room Air Discharge Plan Departure Prescriptions: No Action sumatriptan succinate [Imitrex] 50 mg tablet 50 mg PO Q2-4H PRN (Reason: migraine headache) Qty: 9 11RF Rx Instructions: do not exceed 4 doses per 24 hrs Referrals: Leno Schwab DO [Primary Care Provider] -
--- NOTE | 2022-11-09 23:54 | PC.NURSE ---
Patient not located in ER lobby when called by staff to move to room. Attempted to call patient's cell phone, no answer and call went to unidentified voicemail. At this time assumed patient has left without being seen after triage.
== END 2022-11-09 23:57 | disposition left against medical advice (07) ==
PROVIDERS: Emergency Provider Emergency Medicine; PCP Family Medicine
CPT/HCPCS: 99281

== ENCOUNTER 2022-11-13 12:23 | Emergency (ER) | payer OTHER, SELFPAY ==
[2022-11-13 12:28] VITALS: BP 138/69; PULSE 95; RESP 18; TEMP 37.1; O2SAT 98; BMI 23.1
--- NOTE | 2022-11-13 14:32 | ED_ITS ---
HPI - Neck Pain/Injury General Chief Complaint: Neck Pain/Injury Stated Complaint: neck pain/tingling on rt side of face/lightheaded Time Seen by Provider: 11/13/22 12:55 Source: patient Mode of arrival: Ambulatory Limitations: no limitations History of Present Illness HPI Narrative: Patient is a 37-year-old male. He is here for evaluation of lightheadedness, tingling and pain on the right side of his neck and on the right side of his face. He states that last evening he also had some tingling on the tops of both of his arms but that has gotten better. His presenting symptoms today have been going on for the past several weeks/months. He is actually been seen here in the emergency department. Has been seen by his primary doctor. Has a CT scan of his next scheduled for next week. He is also followed up by ENT who stated that this is most likely a neurologic issue. He stated that today his lightheadedness got much worse. This is why he came into the emergency department today. Related Data Previous Rx's Medication Instructions Recorded sumatriptan succinate 50 mg tablet 50 mg PO Q2-4H PRN migraine 10/22/22 (Imitrex) headache #9 tabs Allergies Allergy/AdvReac Type Severity Reaction Status Date / Time bee venom protein (honey bee) Allergy Unknown Verified 11/13/22 12:33 Review of Systems Constitutional Constitutional: Reports system reviewed and no additional complaints, except as documented Eyes Eyes: Reports system reviewed and no additional complaints, except as documented ENT Ears, Nose, Mouth, and Throat: Reports system reviewed and no additional complaints, except as documented Musculoskeletal Musculoskeletal: Reports system reviewed and no additional complaints, except as documented Integumentary/Breasts Skin/Breast: Reports system reviewed and no additional complaints, except as documented Neurologic Neurologic: Reports system reviewed and no additional complaints, except as documented Hematologic/Lymphatic On Anticoagulants: No Patient History Medical History Migraine Migraine with aura, intractable, without status migrainosus Social History Smoking Status: Never smoker Smoking Status: Never smoker alcohol intake frequency: 0-2 drinks per day Substance Use Type: does not use Exam Initial Vital Signs Initial Vital Signs: Vital Signs Temperature 98.7 F 11/13/22 12:28 Pulse Rate 95 H 11/13/22 12:28 Respiratory Rate 18 11/13/22 12:28 Blood Pressure 138/69 11/13/22 12:28 Pulse Oximetry 98 11/13/22 12:28 Oxygen Delivery Method Room Air 11/13/22 12:28 HENPA Head: normal to inspection and normocephalic Ears: TM's normal bilaterally and EAC's normal Face and sinus: normal facial exam Mouth: oral mucosae normal [facility] Other: No tenderness with palpation over the temporal artery Neck Lymphatic: No lymphadenopathy Skin General: no rashes or lesions noted Neuro General: patient alert, patient awake, patient oriented x3 and moves all extremities Cranial Nerves: CN's II-XI intact bilaterally Cognition: normal cognition Speech: speech normal Extrem General: normal to inspection Course Orders Ordered: ED Orders 11/13/22 14:33 CT head/brain wo con Stat CT soft tissue neck w con Stat Vital Signs Vital signs: Vital Signs - 8 hr 11/13/22 12:28 Temperature 98.7 F Pulse Rate 95 H Respiratory Rate 18 Blood Pressure 138/69 Pulse Oximetry 98 Oxygen Delivery Method Room Air MDM - Neck Pain/Injury Imaging Data CT scan - head: Radiologist's Impression: PROCEDURE:? CT HEAD/BRAIN WO CON ? INDICATIONS:? Dizziness, right-sided neck pain ? TECHNIQUE:? Noncontrast 4.5 mm thick angled axial sections acquired from the foramen magnum to the vertex, with coronal and sagittal reformats.? For radiation dose reduction, the following was used:? automated exposure control, adjustment of mA and/or kV according to patient size.? ? COMPARISON:? [facility], CT, CT HEAD/BRAIN WO CON, 10/15/2022, 20:10. ? FINDINGS:? Image quality:? Excellent.? ? CSF spaces:? Basal cisterns are patent.? No extra-axial fluid collections.? Ventricles are normal in size and shape.? ? Brain:? No midline shift.? No intracranial masses or hemorrhage.? Guy-white matter interface is normal.? Incidental cavum septum pellucidum present. ? Skull and face:? Calvarium and visualized facial bones are intact, without suspicious lesions.? ? Sinuses:? Complete opacification the right maxillary sinus with left maxillary sinus retention cyst ? IMPRESSION:? ? Right maxillary sinus complete opacification.? Left maxillary sinus retention cyst. ? No intracranial hemorrhage or mass effect. CT soft tissue neck: Radiologist's Impression: ROCEDURE:? CT SOFT TISSUE NECK W CON ? INDICATIONS:? Right-sided neck pain, a CT requested by [facility] ? TECHNIQUE:? After the administration of intravenous contrast, 3.0 mm axial sections acquired from the sella to the aortic arch.? 3 mm thick coronal and sagittal reformats were generated.? For radiation dose reduction, the following was used:? automated exposure control.? ? COMPARISON:? None. ? FINDINGS: ? Skull Base: The visualized intracranial contents, skull, and orbits are unremar kable.? Complete opacification the right maxillary sinus with left maxillary sinus retention cyst ? Pharynx and Larynx:? The nasopharyngeal airway is patent and midline.? Parapharyngeal soft tissues including palatine tonsils and base of the tongue are normal.? Retropharyngeal space unremarkable.? Normal appearance of the false and true vocal cords. ? ? Muscles and Fascial Planes:? Fascial planes are well maintained.? No abscess or mass lesion. ? Lymph Nodes:? Scattered nonenlarged nodes throughout the deep cervical chains present without evidence of adenopathy. ? Vasculature:? Unremarkable. ? Submandibular and Parotid Glands:? Normal in size and attenuation. ? Thyroid:? Unremarkable.? No enlarged or calcified nodules. ? Bones:? No acute fracture.? No osteolytic or blastic lesion is evident. Normal bone mineralization. ? Lung Apices:? The visualized lung apices are clear. ? IMPRESSION: ? 1. Bilateral maxillary sinus mucosal disease, right greater than left with near complete opacification.? No remodeling. ? 2. Scattered bilateral cervical lymph nodes without enlargement or adenopathy. [facility] Narrative Medical decision making narrative: Head CT is unremarkable. CT scan of the neck was ordered because this is what his primary doctor wanted. It does show the opacifications of the right maxillary sinus but no other acute pathology. He is already seen ENT. He is a referral to see Neurology but that is not until the end of the month. I have low suspicion that this is cardiac in origin. Low suspicion for CVA/TIA. Unsure the exact etiology in the patient understands this. Will discharge patient home to make contact with his primary doctor. He understands he does not need to repeat the CT scan next week since it was done today. He was given return precautions. Discharge Plan Departure Patient Disposition: Home Clinical Impression: Lightheadedness Instructions: DI for Dizziness-Nonvertigo Activity Restrictions/Additional Instructions: Your workup here in the emergency department is very reassuring. You do not need to get the CT scan that is scheduled for next week because we did that study today. I recommend that you contact your primary doctor on Wednesday for a follow-up. Return to the emergency department for new symptoms. Prescriptions: No Action sumatriptan succinate [Imitrex] 50 mg tablet 50 mg PO Q2-4H PRN (Reason: migraine headache) Qty: 9 11RF Rx Instructions: do not exceed 4 doses per 24 hrs Referrals: Leno Schwab DO [Primary Care Provider] - Stand Alone Forms: Patient Portal/API
--- NOTE | 2022-11-13 14:33 | DI.CT.S_ITS ---
PROCEDURE: CT SOFT TISSUE NECK W CON INDICATIONS: Right-sided neck pain, a CT requested by [facility] TECHNIQUE: After the administration of intravenous contrast, 3.0 mm axial sections acquired from the sella to the aortic arch. 3 mm thick coronal and sagittal reformats were generated. For radiation dose reduction, the following was used: automated exposure control. COMPARISON: None. FINDINGS: Skull Base: The visualized intracranial contents, skull, and orbits are unremarkable. Complete opacification the right maxillary sinus with left maxillary sinus retention cyst Pharynx and Larynx: The nasopharyngeal airway is patent and midline. Parapharyngeal soft tissues including palatine tonsils and base of the tongue are normal. Retropharyngeal space unremarkable. Normal appearance of the false and true vocal cords. Muscles and Fascial Planes: Fascial planes are well maintained. No abscess or mass lesion. Lymph Nodes: Scattered nonenlarged nodes throughout the deep cervical chains present without evidence of adenopathy. Vasculature: Unremarkable. Submandibular and Parotid Glands: Normal in size and attenuation. Thyroid: Unremarkable. No enlarged or calcified nodules. Bones: No acute fracture. No osteolytic or blastic lesion is evident. Normal bone mineralization. Lung Apices: The visualized lung apices are clear. IMPRESSION: 1. Bilateral maxillary sinus mucosal disease, right greater than left with near complete opacification. No remodeling. 2. Scattered bilateral cervical lymph nodes without enlargement or adenopathy. Approved by: Edwardo Lind M.D. on 11/13/2022 at 14:19
--- NOTE | 2022-11-13 14:33 | DI.CT.S_ITS ---
PROCEDURE: CT HEAD/BRAIN WO CON INDICATIONS: Dizziness, right-sided neck pain TECHNIQUE: Noncontrast 4.5 mm thick angled axial sections acquired from the foramen magnum to the vertex, with coronal and sagittal reformats. For radiation dose reduction, the following was used: automated exposure control, adjustment of mA and/or kV according to patient size. COMPARISON: [facility], CT, CT HEAD/BRAIN WO CON, 10/15/2022, 20:10. FINDINGS: Image quality: Excellent. CSF spaces: Basal cisterns are patent. No extra-axial fluid collections. Ventricles are normal in size and shape. Brain: No midline shift. No intracranial masses or hemorrhage. Guy-white matter interface is normal. Incidental cavum septum pellucidum present. Skull and face: Calvarium and visualized facial bones are intact, without suspicious lesions. Sinuses: Complete opacification the right maxillary sinus with left maxillary sinus retention cyst IMPRESSION: Right maxillary sinus complete opacification. Left maxillary sinus retention cyst. No intracranial hemorrhage or mass effect. Approved by: Edwardo Lind M.D. on 11/13/2022 at 14:07
[2022-11-13 16:20] VITALS: BP 118/70; PULSE 63; O2SAT 100
== END 2022-11-13 16:22 | disposition home or self-care (01) ==
PROVIDERS: Emergency Provider Emergency Medicine; PCP Family Medicine
DX: R42 Dizziness and giddiness (principal); M54.2 Cervicalgia
CPT/HCPCS: 36415; 70450; 70491; 99283; 99284; Q9967

== ENCOUNTER → 2023-02-08 11:53 | Outpatient (CLI) | payer OTHER, SELFPAY ==
[2023-02-08 13:53] LABS: Appearance Urine UA CLEAR; Bilirubin Urine UA NEGATIVE (NEGATIVE); Color Urine UA YELLOW; Glucose Urine UA NEGATIVE (Negative); Ketones Urine UA NEGATIVE (NEGATIVE); Leukocyte Esterase Urine UA NEGATIVE (NEGATIVE); Nitrite Urine UA NEGATIVE (Negative); Occult Blood Urine UA NEGATIVE (Negative); Protein Urine UA NEGATIVE (Negative); Specific Gravity Urine UA >=1.030 (1.000-1.035); Urobilinogen Urine UA 0.2 E.U./dL (0.2); pH Urine UA 5.5 (4.5-8.0)
[2023-02-08 14:06] LABS: Bacteria Urine None Seen; RBC Urine None Seen (0-5/HPF); Squamous Epithelial Cell Urine None Seen (0-5/HPF); WBC Urine None Seen (0-5/HPF)
[2023-02-08 14:07] LABS: Culture Indicated Urine Cult Not Indicated; Mucus Urine 2+ (Negative)
== END ==
PROVIDERS: PCP Family Medicine; Referring Provider Family Medicine; Visit Provider Family Medicine
DX: R10.9 Unspecified abdominal pain (principal)
CPT/HCPCS: 81001

== ENCOUNTER → 2023-02-11 08:47 | Outpatient (CLI) | payer OTHER, SELFPAY ==
--- NOTE | 2023-02-11 08:48 | DI.CT.S_ITS ---
PROCEDURE: CT ABDOMEN PELVIS W CON INDICATIONS: Right sided abdominal pain x 3-4 month TECHNIQUE: After the administration of intravenous contrast, axial sections acquired from the lung bases to the pubic symphysis. Coronal and sagittal reformats were performed. For radiation dose reduction, the following was used: automated exposure control, adjustment of mA and/or kV according to patient size. COMPARISON: None. FINDINGS: Image quality: Excellent. Lung bases: Unremarkable. Heart: No significant findings. ABDOMEN: Liver: Punctate hypodensity in the right hepatic lobe (2/30) is too small to characterize, probable cyst versus hemangioma. Gallbladder: Unremarkable. Biliary ducts: Unremarkable. Pancreas: Unremarkable. Spleen: Unremarkable. Adrenal Glands: Unremarkable. Kidneys and Ureters: Unremarkable. Stomach and Bowel: Stomach, small bowel loops, and colon are unremarkable. Appendix is not definitively visualized, however no secondary signs of inflammation in the right lower quadrant. Peritoneum: No abnormal intraperitoneal fluid. No free air. Ventral Wall: No hernias. Abdominal Nodes: No retroperitoneal or mesenteric adenopathy by size criteria. Vessels: Aorta and inferior vena cava are normal in size. PELVIS: Pelvic Organs: Unremarkable. Bladder: Unremarkable. Pelvic Nodes: No enlarged lymph nodes. Miscellaneous: No hernias are seen. Bones: No acute or suspicious osseous abnormality. IMPRESSION: No acute process in the abdomen pelvis to explain patient's symptoms. Dictated by: Gisela Pompa M.D. on 02/11/2023 at 14:39 Approved by: Gisela Pompa M.D. on 02/11/2023 at 14:44
== END ==
PROVIDERS: PCP Family Medicine; Referring Provider Family Medicine; Visit Provider Family Medicine
DX: R10.9 Unspecified abdominal pain (principal)
CPT/HCPCS: 74177; Q9967

== ENCOUNTER → 2023-03-04 18:41 | Outpatient (CLI) | payer OTHER, SELFPAY ==
--- NOTE | 2023-03-04 | DI.MRI.S_ITS ---
PROCEDURE: MR CERVICAL SPINE WO/W CON INDICATIONS: Cervicogenic headache TECHNIQUE: Noncontrast sagittal T1 spin echo and T2 fast spin echo, sagittal STIR, foraminal oblique sagittal T2 fast spin echo, axial gradient echo or T2 fast spin echo through the cervical spine. After the administration of contrast, axial and sagittal T1 spin echo with fat saturation through the cervical spine. COMPARISON: [facility], MR, MR ANGIO NECK W CON, 03/04/2023, 19:57. [facility], CT, CT SOFT TISSUE NECK W CON, 11/13/2022, 14:39. FINDINGS: Image quality: Excellent. Alignment and curvature: There is overall straightening of the normal cervical lordosis. No focal AP alignment abnormality is seen. This examination is limited by involuntary motion artifact. Marrow: Marrow is normal in overall signal, without suspicious enhancement. Spinal cord: Visualized spinal cord has normal size and signal. No cerebellar tonsillar herniation. No abnormal intramedullary enhancement. Paraspinous soft tissues: No paravertebral masses or suspicious enhancement. Paranasal sinus disease can be seen, which is worst within the right maxillary sinus. C2-3: Normal appearance. C3-4: Normal appearance. C4-5: No significant abnormality is seen. C5-6: [id number] loss of disc height and disc signal can be seen. A mild degree of generalized disc osteophyte complex is seen. There is a mild central disc osteophyte protrusion. There is a focal annular fissure seen posteriorly. No neural foraminal narrowing is seen. Mild to moderate central canal narrowing is seen, with minimal mass effect upon the ventral spinal cord. C6-7: The disc height is well-preserved. Loss of disc signal is seen at this level. A mild degree of generalized disc osteophyte complex is seen. Neck is there is a mild central disc osteophyte protrusion. There is a focal annular fissure seen posteriorly. There is no neural foraminal narrowing at this level. Mild central canal narrowing is seen. C7-T1: Normal appearance. IMPRESSION: Focal lower cervical spine degenerative change can be seen, which is worst at C5-C6. Straightening of the normal cervical lordosis is seen, which is commonly observed in patients with muscular spasm. No abnormal enhancement is seen. Paranasal sinus disease noted, which is worst within the right maxillary sinus. Dictated by: Homero Armenta M.D. on 03/05/2023 at 12:10 Approved by: Homero Armenta M.D. on 03/05/2023 at 12:14
--- NOTE | 2023-03-04 | DI.MRI.S_ITS ---
PROCEDURE: MR ANGIO NECK W CON INDICATIONS: cerviccogenic hedache TECHNIQUE: Axial and sagittal TruFISP through the neck. Coronal dynamic MRA after the administration of contrast in the arterial and venous phases, with rotating 3-dimensional maximum intensity projection (MIP) reformats constructed from subtraction images. COMPARISON: [facility], CT, CT SOFT TISSUE NECK W CON, 11/13/2022, 14:39. [facility], MR, MR CERVICAL SPINE WO/W CON, 03/04/2023, 19:37. FINDINGS: Image quality: Excellent. Carotid system: Great vessels demonstrate a conventional anatomy as they arise from the aortic arch. The origins of the common carotid arteries appear normal. The calibers and courses of the common carotid arteries are likewise normal. The carotid bifurcations appear normal bilaterally. The internal carotid arteries are widely patent up to the [place]. Posterior circulation: The origins of the vertebral arteries are unremarkable. The more superior portions of the vertebral arteries demonstrate normal course and caliber. Vertebral arteries join to form a normal appearing basilar artery. Miscellaneous: Subclavian arteries are patent throughout. Pre-contrast images through the neck demonstrate no soft tissue abnormalities. Paranasal sinus disease can be seen, with near complete opacification of the right maxillary sinus. IMPRESSION: Within the arteries of the neck, no hemodynamically significant stenosis can be seen. Paranasal sinus disease, with near complete opacification of the right maxillary sinus. Any quantitative measurements of stenosis were performed using NASCET criteria. Dictated by: Homero Armenta M.D. on 03/05/2023 at 12:07 Approved by: Homero Armenta M.D. on 03/05/2023 at 12:09
== END ==
LOC: MRI 18:43
PROVIDERS: PCP Family Medicine; Referring Provider Psychiatry & Neurology Neurology; Visit Provider Psychiatry & Neurology Neurology
DX: G43.009 Migraine without aura, not intractable, without status migrainosus (principal); G44.86 Cervicogenic headache; M47.812 Spondylosis without myelopathy or radiculopathy, cervical region; J32.0 Chronic maxillary sinusitis; M54.2 Cervicalgia; R42 Dizziness and giddiness
CPT/HCPCS: 70548; 72156; A9579

== ENCOUNTER → 2024-05-19 07:12 | Outpatient (CLI) | payer OTHER, SELFPAY ==
--- NOTE | 2024-05-19 07:14 | DI.MRI.S_ITS ---
PROCEDURE: MR ANKLE LT WO CON INDICATIONS: PERONEAL TENDINITIS LEFT LEG TECHNIQUE: Noncontrast sagittal T1 spin echo and T2 fast spin echo with fat saturation, axial proton density fast spin echo and T2 fast spin echo with fat saturation, coronal T1 spin echo and T2 fast spin echo with fat saturation through the ankle/hindfoot. COMPARISON: [facility] [place], CR, XR FOOT 3+ VIEWS LEFT, 04/26/2024, 17:21. FINDINGS: Image quality: Excellent. Bones and joints: Mild edema within the plantar aspect of the calcaneus adjacent to the origin of the central band of plantar fascia. No adjacent fascial thickening or tearing is seen. A small plantar calcaneal enthesophyte is present. No hindfoot coalitions. No osteochondral injuries of the talar dome. Medial structures: The deltoid ligament and the spring ligament complex are intact. Moderate posterior tibialis tenosynovitis. The flexor digitorum longus and flexor hallucis longus tendons are intact. The posterior tibial neurovascular bundle appears normal within the tarsal tunnel, without extrinsic mass effect. Lateral structures: Remote prior low-grade sprains of the anterior talofibular ligament and the calcaneofibular ligament. The posterior talofibular ligament is intact. The anterior and posterior tibiofibular ligaments are intact. The peroneus longus and brevis tendons demonstrate normal location and morphology. The sinus tarsi demonstrates normal fatty signal. Anterior structures: The tibialis anterior, extensor hallucis longus, and extensor digitorum longus tendons appear intact. Posterior and plantar structures: Achilles tendon is intact. Small retrocalcaneal bursal effusion. Mild osseous edema at the origin of the plantar fascia without significant fascial thickening or tearing seen. No significant soft tissue edema. No abductor digiti minimi muscle atrophy to suggest Malcolm neuropathy. IMPRESSION: 1. Focal osseous edema at the plantar aspect of the calcaneus at the origin of the plantar fascia with associated small enthesophyte. No adjacent fascial tearing is seen. Findings may be secondary to an osseous contusion, traction trabecular bone injury, repetitive stress, or reactive to an occult fascial tear. 2. Moderate distal posterior tibialis tenosynovitis. No tendon tearing is seen. 3. Remote prior low-grade sprains of the anterior talofibular ligament and the calcaneofibular ligament. Approved by: Severiano Tong M.D. on 05/19/2024 at 8:32
== END ==
LOC: MRI 07:12
PROVIDERS: PCP Family Medicine; Referring Provider Podiatrist; Visit Provider Podiatrist
DX: M76.72 Peroneal tendinitis, left leg (principal); M65.862 Other synovitis and tenosynovitis, left lower leg; M77.32 Calcaneal spur, left foot; R60.0 Localized edema
CPT/HCPCS: 73721

== ENCOUNTER → 2024-07-21 09:10 | Outpatient (CLI) | payer OTHER, SELFPAY ==
--- NOTE | 2024-07-21 09:11 | DI.MRI.S_ITS ---
PROCEDURE: MR KNEE RT WO CON INDICATIONS: tendinitis of right quadriceps tendon TECHNIQUE: Noncontrast sagittal PD fast spin echo and T2 fast spin echo with fat saturation, sagittal 3-D FLASH with fat saturation; coronal T1 spin echo and PD fast spin echo with fat saturation, and axial PD fast spin echo with fat saturation through the knee. COMPARISON: [facility] [place], CR, XR KNEE 4+ VIEWS RIGHT, 06/29/2024, 9:25. FINDINGS: Image quality: Excellent. Menisci: Signal abnormality involving posterior horn of medial meniscus extending to medial periphery of inferior articulating surface suggestive of subtle oblique tear in this area. The lateral meniscus is intact. Cruciate ligaments: Sprain/low-grade intrasubstance partial-thickness tear involving anterior cruciate ligament is seen with thickened ligament and intrasubstance T2 hyperintense signal near its tibial insertion. The posterior cruciate ligament is intact. Medial structures: The medial collateral ligament appears mildly thickened with surrounding soft tissue edema. Visualized portions of the pes anserinus tendons appear normal. No abnormal bursal fluid. Lateral structures: The lateral collateral ligament, long and short heads of the biceps femoris tendon appear intact. The popliteus tendon appears normal. Iliotibial band appears normal. Anterior structures: Distal quadriceps tendinosis at its proximal patellar insertion is seen. The patellar tendon is intact. Patellar alignment is normal. Bones and cartilage: Marrow edema involving inferior aspect of intercondylar region of distal femur is seen with overlying femoral trochlear chondromalacia. Articulating cartilage in medial and lateral femoral tibial compartments is normal in thickness. Joint space: There is small knee joint fluid. There is a small popliteal cyst measures up to 1.6 x 2.2 x 5.1 cm in size.. Normal appearing synovial plicae are incidentally noted. IMPRESSION: 1. Finding is concerning for very subtle oblique tear involving posterior horn of medial meniscus extending to medial periphery of inferior articulating surface. No evidence of lateral meniscal tear. 2. Sprain/low-grade partial-thickness tear involving ACL near its distal insertion. No ACL rupture. The PCL is intact. 3. Low-grade MCL sprain. 4. Distal quadriceps tendinosis. 5. 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 No fracture or dislocation. Small joint effusion and a small popliteal cyst as above, no loose bodies. Dictated by: Damon Pedroza M.D. on 07/23/2024 at 3:00 Approved by: Damon Pedroza M.D. on 07/23/2024 at 3:05
== END ==
PROVIDERS: PCP Family Medicine; Referring Provider Orthopaedic Surgery Foot and Ankle Surgery; Visit Provider Orthopaedic Surgery Foot and Ankle Surgery
DX: S83.511A Sprain of anterior cruciate ligament of right knee, initial encounter (principal); S83.411A Sprain of medial collateral ligament of right knee, initial encounter; M25.461 Effusion, right knee; M71.21 Synovial cyst of popliteal space [Baker], right knee; X58.XXXA Exposure to other specified factors, initial encounter
CPT/HCPCS: 73721